=== PATIENT | female | born 1995 | race Two or more races ===

== ENCOUNTER 2020-10-22 14:02 | Emergency (ER) | payer SELFPAY ==
[~2020-10-22] VITALS: Ht 170.2 cm; Wt 70.0 kg
[2020-10-22] MEDS ORDERED: KETOROLAC 60MG/2ML VIAL IM ONE (14:30)
[2020-10-22 15:55] VITALS: BP 140/88
== END 2020-10-22 16:14 | disposition home or self-care (01) ==
LOC: ER 14:02
DX: S39.012A Strain of muscle, fascia and tendon of lower back, initial encounter (principal); V49.9XXA Car occupant (driver) (passenger) injured in unspecified traffic accident, initial encounter; Y93.89 Activity, other specified; Y92.89 Other specified places as the place of occurrence of the external cause; Y99.8 Other external cause status
CPT/HCPCS: 71045; 73110; 81025; 96372; 99284; J1885